=== PATIENT | male | born 1945 | race Two or more races ===

== ENCOUNTER 2019-04-09 09:49 | Emergency (ER) | payer BC ==
[~2019-04-09] VITALS: Ht 157.5 cm; Wt 76.0 kg
[2019-04-09] MEDS ORDERED: KETOROLAC 30MG/ML VIAL IV STA (11:15)
[2019-04-09] MEDS ORDERED: ONDANSETRON HCL 4MG/2ML INJ IV STA (11:15)
[2019-04-09] MEDS ORDERED: SODIUM CHLORIDE 0.9% 1,000 ML IV ONE (11:15)
[2019-04-09 11:35] LABS: BASOPHILS % 0.5 % (0.0-2.0); EOSINOPHILS % 2.2 % (0.0-5.0); HEMATOCRIT. 37.2 % (42.0-52.0); HEMOGLOBIN. 13.1 g/dL (14.0-18.0); LYMPHOCYTES % 15.3 % (20.0-50.0); MEAN CORPUSCULAR HEMOGLOBIN 33.3 pg (28.0-32.0); MEAN CORPUSCULAR VOLUME 94.6 fL (80.0-94.0); MEAN PLATELET VOLUME 8.1 fl (7.4-10.4); MONOCYTES % 5.8 % (2.0-8.0); NEUTROPHILS % 76.2 % (40.0-76.0); PLATELET 228 x1000/uL (130-400); RED BLOOD CELL COUNT 3.93 mill/uL (4.7-6.1); RED CELL DISTRIBUTION WIDTH 13.2 % (11.6-14.6)
[2019-04-09 11:43] LABS: CHLORIDE 108 mEq/L (98-107)
[2019-04-09 15:40] VITALS: BP 160/70
== END 2019-04-09 16:05 | disposition home or self-care (01) ==
LOC: ER 09:49
DX: M54.40 Lumbago with sciatica, unspecified side (principal); I10 Essential (primary) hypertension; R42 Dizziness and giddiness; R11.2 Nausea with vomiting, unspecified
CPT/HCPCS: 36415; 80053; 85025; 93005; 96361; 96374; 96375; 99284; J1885; J2405; J7030; Z7610